=== PATIENT | female | born 1995 | race Caucasian/White ===

== ENCOUNTER → 2020-03-13 13:08 | Outpatient (CLI) | payer OTHER, SELFPAY ==
[2020-03-13 15:27] LABS: HCG,Quantitative 10756 mIU/ml (0-5.42)
[2020-03-15 10:36] LABS: Progesterone 29.9 ng/mL (.)
== END ==
PROVIDERS: Visit Provider Nurse Practitioner Obstetrics & Gynecology
DX: Z32.00 Encounter for pregnancy test, result unknown (principal)
CPT/HCPCS: 36415; 84144; 84702

== ENCOUNTER → 2020-03-28 15:56 | Outpatient (CLI) | payer OTHER, SELFPAY ==
[2020-03-28 17:02] LABS: Basophils # 0.1 K/mm3 (0-0.2); Basophils % 0.5 % (0.1-2.0); Eosinophils # 0.2 K/mm3 (0.0-0.4); Eosinophils % 2.1 % (0.1-12.0); Hematocrit 42.1 % (37.0-47.0); Hemoglobin 13.4 g/dL (12.2-16.2); Lymphocytes # 2.7 K/mm3 (0.7-4.5); Lymphocytes % 26.1 % (10-50); Mean Corpuscular HGB Conc 31.9 g/dL (31.8-35.4); Mean Corpuscular Hemoglobin 31.4 pg (27.0-31.2); Mean Corpuscular Volume 98.5 fl (81-99); Mean Platelet Volume 7.1 fl (7.4-10.4); Monocytes # 0.5 K/mm3 (0.1-1.0); Monocytes % 4.5 % (1.7-9.3); Neutrophils # 6.9 K/mm3 (1.8-7.8); Neutrophils % 66.7 % (37.0-80.0); Platelet Count 338 K/mm3 (142-424); Red Blood Count 4.28 M/mm3 (4.20-5.40); Red Cell Distribution Width 12.5 % (11.5-17.5); White Blood Count 10.4 K/mm3 (4.8-10.8)
[2020-03-30 10:04] LABS: HIV Screen 4th Generation wRfx Non Reactive (Non Reactive); Rubella Antibodies, IgG 2.99 index (Immune >0.99)
[2020-03-30 12:45] LABS: Hepatitis B Surface Antigen Negative (Negative); Hepatitis C Antibody <0.1 s/co ratio (0.0-0.9); Rapid Plasma Reagin Ab Titer Non Reactive (NonRea<1:1)
[2020-03-30 20:06] LABS: HSV 1 IgG, Type Spec <0.91 index (0.00-0.90); HSV 2 IgG Supplemental Testing Positive (Negative); HSV 2 IgG, Type Spec 4.06 index (0.00-0.90)
== END ==
PROVIDERS: Visit Provider Nurse Practitioner Obstetrics & Gynecology
DX: Z34.90 Encounter for supervision of normal pregnancy, unspecified, unspecified trimester (principal)
CPT/HCPCS: 36415; 85025; 86592; 86695; 86703; 86762; 86790; 86850; 87340; 87380; G0432

== ENCOUNTER → 2020-06-25 13:31 | Outpatient (CLI) | payer BC, OTHER, SELFPAY ==
--- NOTE | 2020-06-25 13:38 | US_ITS ---
PROCEDURE: US OB /MATERNAL DETAIL CLINICAL INDICATION: OB Complete 20 wk anatomy scan COMPARISON: No exams were available for comparison FINDINGS: There is a single live fetus present which is in breech presentation. The cervix is closed and measures approximately 4 cm. heart and body motion noted. Placenta is posterior and grade 1. Complete survey performed and was unremarkable on the submitted images as in PACS. No discrete anomalies identified on survey imaging by technologist. Active fetus. Three-vessel cord with satisfactory umbilical cord insertion. 4- chamber heart noted. Survey of brain & ventricles Unremarkable. Face and neck survey unremarkable. Diaphragm and chest views unremarkable. Abdomen: Both kidneys noted and unremarkable. Stomach noted and satisfactory. Spine: Survey of the spine satisfactory with no anomalies identified nor imaged. Both arms and legs noted. Amniotic Fluid: Adequate. Maternal adnexa: No significant findings. Measurements: Average ultrasound age 20weeks. Gestational Age 19weeks 6days Estimated due date by ultrasound age 0811/12/2020. Estimated weight 318g BPD = 19weeks 6days OFD = 21weeks 1day HC = 20weeks AC = 19weeks 6days FL = 20weeks Growth Percentile= 46Percent% Heart Rate = 135bpm Cerebellum = 20weeks 3days Humerus = 20weeks 1day HC/AC is 1.19 CI is 0.72 FL/BPD is 0.69 FL/AC is 0.22 IMPRESSION: Live IUP in breech presentation with an average ultrasound age of 20 weeks. No obvious anomalies. Please see above for detail. Dictated by: Albino Clayton MD 06/26/2020 12:27 Albino Clayton MD in [place] 06/26/2020 12:27
== END ==
PROVIDERS: PCP Nurse Practitioner Obstetrics & Gynecology; Visit Provider Nurse Practitioner Obstetrics & Gynecology
DX: Z36.0 Encounter for antenatal screening for chromosomal anomalies (principal)
CPT/HCPCS: 76811

== ENCOUNTER 2020-08-15 10:08 | Outpatient (CLI) | payer BC, OTHER, SELFPAY ==
[2020-08-15 11:06] LABS: Glucose,Fasting 84 mg/dl (74-100)
[2020-08-15 12:10] VITALS: BP 129/69; PULSE 82; RESP 16; TEMP 36.4; O2SAT 99
[2020-08-15 12:24] LABS: Glucose 1 Hour 116 mg/dL (74-100)
== END 2020-08-15 12:30 | disposition home or self-care (01) ==
PROVIDERS: PCP Nurse Practitioner Obstetrics & Gynecology; Visit Provider Nurse Practitioner Obstetrics & Gynecology
DX: Z34.90 Encounter for supervision of normal pregnancy, unspecified, unspecified trimester (principal); Z3A.23 23 weeks gestation of pregnancy
CPT/HCPCS: 36415; 82951; 96372; J2790

== ENCOUNTER 2020-08-24 21:05 | Outpatient (CLI) | payer BC, OTHER, SELFPAY ==
[2020-08-24 21:18] VITALS: BMI 25.3
[2020-08-24 21:43] LABS: Microscopic, Urine URINE MICROSCOPIC (MICROSCOPIC)
[2020-08-24 22:03] LABS: Appearance,Urine CLEAR (Clear); Bilirubin,Urine Negative (Negative); Blood, Urine Negative (Negative); Color,Urine YELLOW (Yellow); Glucose,Urine (UA) Negative (Negative); Ketones,Urine Negative (Negative); Leukocyte Esterase,Urine Negative (Negative); Nitrate,Urine Negative (Negative); PH,Urine 7.5 (5.0-8.5); Protein,Urine Negative (Negative); Urobilinogen,Urine 0.2 EU/dl (0.2)
[2020-08-24 22:07] VITALS: BP 126/85; PULSE 91; RESP 18; TEMP 36.7; O2SAT 98; BMI 25.3
[2020-08-24 22:07] LABS: RBC,Urine Occasional #/hpf (0-3); WBC,Urine Occasional #/hpf (0-3)
[2020-08-24 22:11] LABS: Barbiturates Screen,Urine Negative ng/ml (<200); Benzodiazepines Screen,Urine Negative ng/ml (<200)
[2020-08-24 22:12] LABS: Amphetamine/Metha Screen,Urine Negative ng/ml (<1000)
[2020-08-24 22:13] LABS: Cannabinoid Screen,Urine Negative ng/ml (<50); Methadone Screen,Urine Negative ng/ml (<300)
[2020-08-24 22:14] LABS: Cocaine Screen,Urine Negative ng/ml (<300)
[2020-08-24 22:15] LABS: Opiate Screen,Urine Negative ng/ml (<300); Phencyclidine Screen,Urine Negative ng/ml (<25)
[2020-08-24 22:30] LABS: Fetal Fibronectin (Rapid) Negative (Negative)
== END 2020-08-24 23:57 | disposition home or self-care (01) ==
LOC: OBOUT 21:07 → OB 21:09
PROVIDERS: PCP Nurse Practitioner Obstetrics & Gynecology; Visit Provider Obstetrics & Gynecology
DX: O47.03 False labor before 37 completed weeks of gestation, third trimester (principal); Z3A.28 28 weeks gestation of pregnancy
CPT/HCPCS: 59025; 80305; 81001; 82731; 96365; 96366; 96372; G0463

== ENCOUNTER → 2020-10-10 18:09 | Outpatient (CLI) | payer BC, OTHER, SELFPAY | PROVIDERS: Visit Provider Nurse Practitioner Obstetrics & Gynecology | DX: Z34.90 Encounter for supervision of normal pregnancy, unspecified, unspecified trimester (principal) | CPT/HCPCS: 86403 ==

== ENCOUNTER 2020-10-28 18:35 | Outpatient (CLI) | payer BC, OTHER, SELFPAY ==
[2020-10-28 19:23] VITALS: BMI 27.3
[2020-10-28 19:28] VITALS: BP 132/81; PULSE 102; RESP 18; O2SAT 95; BMI 27.3
[2020-10-28 19:37] LABS: Microscopic, Urine URINE MICROSCOPIC (MICROSCOPIC)
[2020-10-28 19:39] LABS: Appearance,Urine CLEAR (Clear); Bilirubin,Urine Negative (Negative); Blood, Urine TRACE-I (Negative); Color,Urine STRAW (Yellow); Glucose,Urine (UA) Negative (Negative); Ketones,Urine 3+ (Negative); Leukocyte Esterase,Urine Negative (Negative); Nitrate,Urine Negative (Negative); PH,Urine 6.5 (5.0-8.5); Protein,Urine Negative (Negative); Urobilinogen,Urine 0.2 EU/dl (0.2)
[2020-10-28 19:50] LABS: Benzodiazepines Screen,Urine Negative ng/ml (<200)
[2020-10-28 19:51] LABS: Amphetamine/Metha Screen,Urine Negative ng/ml (<1000)
[2020-10-28 19:52] LABS: Barbiturates Screen,Urine Negative ng/ml (<200); Cannabinoid Screen,Urine Negative ng/ml (<50)
[2020-10-28 19:53] LABS: Cocaine Screen,Urine Negative ng/ml (<300)
[2020-10-28 19:54] LABS: Methadone Screen,Urine Negative ng/ml (<300); Opiate Screen,Urine Negative ng/ml (<300)
[2020-10-28 19:55] LABS: Phencyclidine Screen,Urine Negative ng/ml (<25)
== END 2020-10-28 20:20 | disposition home or self-care (01) ==
LOC: OBOUT 18:40 → OB 18:41
PROVIDERS: PCP Nurse Practitioner Obstetrics & Gynecology; Visit Provider Obstetrics & Gynecology
DX: O60.03 Preterm labor without delivery, third trimester (principal); Z3A.37 37 weeks gestation of pregnancy; M54.5 Low back pain
CPT/HCPCS: 59025; 80305; 81001; G0463

== ENCOUNTER → 2020-11-08 14:50 | Outpatient (CLI) | payer BC, OTHER, SELFPAY ==
--- NOTE | 2020-11-08 14:51 | US_ITS ---
PROCEDURE: US OB BIOPHYSICAL PROFILE CLINICAL INDICATION: sga Small for gestational age TECHNIQUE: FINDINGS: There is a single live fetus present in cephalic presentation. heart and body motion noted. The cervix is closed measuring 3 cm. The placenta is posterior and grade 2. The following parameters are obtained: Average ultrasound age is Average 36weeks 3days Estimated due date by ultrasound is 12/03/2020. Estimated weight is 2,896g. This is 9th percentile indicating small for gestational age. BPD: 35 weeks 0 days OFD: HC: 36 weeks 6 days AC: 35 weeks 6 days FL: 37 weeks 4 days heart rate: 130bpm bpm. HC/AC: 1.02 Cephalic index: 0.73 FL/BPD: 0.85 FL/AC: 0.23 Amniotic fluid index: 12 cm Qualitative AFV: 2 breathing movements: 2 Gross body movements: 2 Tone: 2 Biophysical profile score: 8 IMPRESSION: Live IUP in cephalic presentation with an average ultrasound age of 36 weeks 6 days an estimated weight of 2896 g which is 9th percentile indicating small for gestational age. Normal amniotic fluid volume of 12 cm. Biophysical profile 8 of 8 Dictated by: Albino Clayton MD 11/08/2020 16:30 Albino Clayton MD in [place] 11/08/2020 16:30
== END ==
PROVIDERS: PCP Nurse Practitioner Obstetrics & Gynecology; Visit Provider Nurse Practitioner Obstetrics & Gynecology
DX: O36.5990 Maternal care for other known or suspected poor fetal growth, unspecified trimester, not applicable or unspecified (principal)
CPT/HCPCS: 76816; 76819

== ENCOUNTER → 2020-11-12 16:18 | Outpatient (CLI) | payer BC, OTHER, SELFPAY | PROVIDERS: Visit Provider Nurse Practitioner Obstetrics & Gynecology | DX: Z01.812 Encounter for preprocedural laboratory examination (principal); Z11.52 Encounter for screening for COVID-19; Z3A.39 39 weeks gestation of pregnancy | CPT/HCPCS: U0003 ==

== ENCOUNTER 2020-11-14 05:07 | Inpatient (IN) | payer BC, OTHER, SELFPAY ==
[2020-11-14 05:11] VITALS: BMI 28.0
[2020-11-14 05:32] VITALS: BP 136/85; PULSE 96; RESP 18; TEMP 37.1; O2SAT 97; BMI 28.0
[2020-11-14 05:37] LABS: Microscopic, Urine URINE MICROSCOPIC (MICROSCOPIC)
[2020-11-14 05:54] LABS: Bilirubin,Urine Negative (Negative); Blood, Urine TRACE-I (Negative); Color,Urine YELLOW (Yellow); Glucose,Urine (UA) Negative (Negative); Ketones,Urine Negative (Negative); Leukocyte Esterase,Urine 2+ (Negative); Nitrate,Urine Negative (Negative); PH,Urine 6.5 (5.0-8.5); Protein,Urine Negative (Negative); Urobilinogen,Urine 0.2 EU/dl (0.2)
[2020-11-14 05:57] LABS: Basophils # 0.1 K/mm3 (0-0.2); Basophils % 0.6 % (0.1-2.0); Eosinophils # 0.3 K/mm3 (0.0-0.4); Eosinophils % 3.1 % (0.1-12.0); Hemoglobin 11.8 g/dL (12.2-16.2); Lymphocytes # 2.4 K/mm3 (0.7-4.5); Mean Corpuscular HGB Conc 32.9 g/dL (31.8-35.4); Mean Corpuscular Hemoglobin 30.1 pg (27.0-31.2); Mean Corpuscular Volume 91.7 fl (81-99); Monocytes # 0.6 K/mm3 (0.1-1.0); Monocytes % 5.6 % (1.7-9.3); Neutrophils # 7.4 K/mm3 (1.8-7.8); Neutrophils % 68.7 % (37.0-80.0); Platelet Count 272 K/mm3 (142-424); Red Blood Count 3.92 M/mm3 (4.20-5.40); Red Cell Distribution Width 14.2 % (11.5-17.5); White Blood Count 10.8 K/mm3 (4.8-10.8)
[2020-11-14 06:08] LABS: Appearance,Urine Slightly Cloudy (Clear)
[2020-11-14 06:38] LABS: Bacteria,Urine 1+ /lpf; Mucus,Urine 1+ /lpf
[2020-11-14 08:58] LABS: Amphetamine/Metha Screen,Urine Negative ng/ml (<1000); Barbiturates Screen,Urine Negative ng/ml (<200)
[2020-11-14 08:59] LABS: Benzodiazepines Screen,Urine Negative ng/ml (<200)
[2020-11-14 09:00] LABS: Cannabinoid Screen,Urine Negative ng/ml (<50); Cocaine Screen,Urine Negative ng/ml (<300)
[2020-11-14 09:01] LABS: Methadone Screen,Urine Negative ng/ml (<300); Opiate Screen,Urine Negative ng/ml (<300)
[2020-11-14 09:02] LABS: Phencyclidine Screen,Urine Negative ng/ml (<25)
--- NOTE | 2020-11-14 09:46 | HMH.LABNOT ---
Labor Note - Subjective: Date: 11/14/20 Time: 09:46 regular contraction - Objective: NST:: Reactive Contractions:: every 2-3 minutes Cervical Dilation:: 4 Effacement:: 50% Station: -1 Membranes: intact - Fetus: Monitoring?: Yes monitoring type:: External - Assessment: Labor progressing?: Yes Cephalopelvic disproportion?: No Patient Problems: All Active Problems (Acute) - Plan: Anesthesia for epidural?: Yes Continue to labor down?: Yes Plan for ?: No Continue to monitor?: Yes Start pushing?: No Additional information:: She is doing well. She does not want her membranes ruptured at this point time. She is 4 cm 50% effaced. We will plan for a vaginal delivery.
--- NOTE | 2020-11-14 10:30 | HMH.OBAPHP ---
OB - H&P: HPI Antepartum - History of Present Illness Chief complaint: Postterm History of present illness: She is a 25-year-old 2 para 1 at 40 and 1 weeks gestational age. Since she is postterm we have elected to bring her in for induction of labor. - History of Present Criteria for establishing EDC:: LMP confirmed by 1st trimester US care: good care Ultrasounds: normal 1st trimester US, normal mid trimester US Obstetrical complications: none Medical complications: none - Labs Rubella: immune RPR/VDRL: nonreactive GBS status: negative HBsAG: negative [facility] History I have reviewed the patient's past medical history: Yes Medical History: Reports:: Heart Murmur *Have you ever received a pneumonia vaccine?: No *Have you received a flu vaccine this season?: No Laterality Cases: Bilateral: Tonsillectomy Other Surgeries: No: Amputation: No Fractures: No - *Social History Smoking Status: Never smoker Alcohol Intake: never Alcohol Intake Frequency:: other Substance Use Type: denies use *Occupational Status:: employed *Travel in the last 8 weeks: None Family Hx:: Diabetes, Coronary Artery Disease Para: 1 Review of Systems - Review of Systems Review of systems:: pertinent systems reviewed and negative unless documented below Meds Home Medications Medication Instructions Recorded Confirmed Type PNV 153-FA 400 mcg-om3 35 mg-dha tab PO 03/28/20 11/12/20 History 25 mg-epa 5 mg-fish oil chew tablet valacyclovir 500 mg tablet 500 mg PO DAILY #90 tab 05/22/20 11/12/20 Rx ferrous sulfate 325 mg (65 mg 325 mg PO DAILY #30 tab 06/19/20 11/12/20 Rx iron) tablet famotidine 20 mg tablet 20 mg PO DAILY #90 tab 07/20/20 11/12/20 Rx Allergies Allergy/AdvReac Type Severity Reaction Status Date / Time Penicillins Allergy Unknown Verified 11/12/20 15:26 sulfamethoxazole Allergy hives Verified 11/12/20 15:26 [From Bactrim] trimethoprim [From Bactrim] Allergy hives Verified 11/12/20 15:26 OB - H&P: Exam - Physical Exam Vital signs: Temp Pulse Resp BP Pulse Ox 98.7 F 96 H 18 136/85 97 11/14/20 05:32 11/14/20 05:32 11/14/20 05:32 11/14/20 05:32 11/14/20 05:32 - Constitutional no acute distress - Routine HEENT Exam Head: Present: normocephalic Eye: Present: EOMI, PERRL ENT: Present: mucous membranes moist - Routine Neck Exam Present: supple, full ROM - Routine Respiratory Exam Absent: accessory muscle use (good air entry bilaterally), respiratory distress, wheezes, crackles - Routine Cardiovascular Exam Present: RRR. Absent: murmur - Routine Abdominal Exam Present: soft, normoactive bowel sounds. Absent: tenderness, distended, guarding - Routine Rectal Exam Patient deferred: visual exam, digital exam - Routine Exam Patient deferred: external exam, groin exam, perineal exam - Routine Extremities Exam Present: full ROM. Absent: cyanosis, edema - Routine Skin Exam Present: intact. Absent: cyanosis - Routine Neurological Exam Present: alert, oriented X3 - Routine Psychiatric Exam Present: normal affect OB - Results - Labs Labs: Short CBC 11/14/20 Range/Units 05:25 WBC 10.8 (4.8-10.8) K/mm3 Hgb 11.8 L (12.2-16.2) g/dL Hct 36.0 L (37.0-47.0) % Plt Count 272 (142-424) K/mm3 Urine 11/14/20 Range/Units 05:25 Urine Color Yellow (Yellow) Urine Appearance Slightly cloudy (Clear) Urine pH 6.5 (5.0-8.5) Ur Specific Chaplin 1.020 (1.005-1.030) Urine Protein Negative (Negative) Urine Glucose (UA) Negative (Negative) OB - A/P Antepartum (1) Normal delivery at term Status: Acute - Additional Plan Planning to breastfeed?: Yes Plan: induction Additional Information:: She is 40 weeks and 1 day and we have started her on IV oxytocin. We expect a vaginal delivery.
--- NOTE | 2020-11-14 11:01 | HMH.ANESCL ---
[facility] Anesthesia Checklist - Patient Identification Patient Identification: Arm Band - Structural Data Admitted From: Inpatient Planned Operative Procedure/s: Labor epidural Consent for Planned Operative Procedure(s) Verified: Yes - NPO Status Verified Time NPO: 00:00 - Airway Assessment C-Spine Mobility Assessed: Yes TMJ Mobility Assessed: Yes Dentition: Good Dentition - Neurological Assessment Level of Consciousness: Awake Hx Seizures: No Numbness or tingling in extremities: No - Anesthesia Plan Anesthesia Risk discussed: Yes Anesthesia Plan: Verified ASA Class: II Anesthesia Type: Epidural [facility] History I have reviewed the patient's past medical history: Yes Medical History: Reports:: Heart Murmur *Have you ever received a pneumonia vaccine?: No *Have you received a flu vaccine this season?: No Anesthesia experience/problems:: None Laterality Cases: Bilateral: Tonsillectomy Other Surgeries: No: Amputation: No Fractures: No - *Social History Smoking Status: Never smoker Alcohol Intake: never Alcohol Intake Frequency:: other Substance Use Type: denies use *Occupational Status:: employed *Travel in the last 8 weeks: None Family Hx:: Diabetes, Coronary Artery Disease Para: 1
--- NOTE | 2020-11-14 11:12 | HMH.LABNOT ---
Labor Note - Subjective: Date: 11/14/20 Time: 11:12 regular contraction - Objective: NST:: Reactive Contractions:: every 2-3 minutes Cervical Dilation:: 5-6 Effacement:: 100% Station: 0 Membranes: spontaneously ruptured - Fetus: monitoring type:: External - Assessment: Labor progressing?: Yes Cephalopelvic disproportion?: No Patient Problems: All Active Problems Normal delivery at term (Acute) (Acute) - Plan: Anesthesia for epidural?: Yes Continue to labor down?: Yes Plan for ?: No Continue to monitor?: Yes Start pushing?: No Comment:: She is doing well. The membranes ruptured spontaneously. The cervix is thinned out and the baby's head is coming down.
--- NOTE | 2020-11-14 13:13 | HMH.DN ---
- Delivery Note Delivery Date:: 11/14/20 Delivery Time:: 12:55 Anesthesia Type: Epidural Was labor medically induced?: Yes Induction method: per pitocin protocol Gestational age (weeks): 40 delivered prior to 39 weeks?: No Gender: Female at 1 minute: 7 at 5 minutes: 9 Delivery Procedure:: She is a 25-year-old 2 para 1 at 40 weeks and 1 day gestational age. Since she was postdates we elected to induce her labor at term. She was started on IV oxytocin and under labor epidural progressed to full dilation. She delivered spontaneously a liveborn female child at 12:55 AM in the afternoon of November 14, 2020. On delivery of the head it was noted there was 2 nuchal cords that were easily reduced. This was followed by the anterior shoulder and the rest the infant's body atraumatically. The baby was vigorous and we allowed the cord to continue to pulsate for approximately 1 minute. The oropharynx and nasopharynx were bulb suction. The cord was then doubly clamped and cut and the was placed on the mother's abdomen for further care. The nurses assigned Apgars of 7 at 1 minute and 9 at 5 minutes. I then obtained cord blood as well as cord pH. Then using gentle traction on the cord and countertraction on the fundus I was able to easily deliver the placenta intact. It had a normal three-vessel cord. There were no perineal or vaginal lacerations. Estimated blood loss was approximately 200 cc. Placental Delivery Description: Spontaneous
[2020-11-14 21:20] VITALS: BP 129/81; PULSE 77; RESP 18; TEMP 36.6; O2SAT 96
[2020-11-14 23:32] VITALS: BP 120/56; PULSE 70; RESP 16; TEMP 36.6; O2SAT 97
[2020-11-15 05:07] VITALS: BP 111/57; PULSE 74; RESP 17; TEMP 36.7; O2SAT 98
[2020-11-15 07:04] LABS: Hematocrit 31.2 % (37.0-47.0); Hemoglobin 10.3 g/dL (12.2-16.2)
--- NOTE | 2020-11-15 12:36 | HMH.ACPN2 ---
Internal Medicine - PN: Subj *Date: 11/15/20 *Time: 12:36 Interval history: PPD #1 no unusual complaints tolerating regular diet ambulating and voiding without difficulty lochia appropriate Exam Vital signs and Labs for Last 24 Hours: Temp Pulse Resp BP Pulse Ox 98.0 F 74 17 111/57 L 98 11/15/20 05:07 11/15/20 05:07 11/15/20 05:07 11/15/20 05:07 11/15/20 05:07 Laboratory Results - last 24 hr 11/15/20 06:28: Screen Negative, Baby's Rh Status Positive, Rhogam Infusion Rhogam release 11/15/20 06:28: Hgb 10.3 L, Hct 31.2 L I & O for Last 24 hours: Intake & Output 11/13/20 11/14/20 11/15/20 11/16/20 11:59 11:59 11:59 11:59 Weight 158 lb Microbiology Reports for the Last 24 Hours: Microbiology 11/14/20 05:25 Urine,Clean Catch Urine Culture - Preliminary NO GROWTH AFTER 24 HOURS Narrative: CONSTITUTIONAL: no acute distress HEENT: mucous membranes moist PULMONARY: breathing unlabored without audible wheezes CV: no tachycardia or visible JVD; normal LE peripheral pulses ABD: soft, NT/ND, no guarding : fundus firm below umbilicus SKIN: no visible rash or lesions EXT: 1+ edema LEs NEURO: alert/oriented, no altered mental status PSYCH: appropriate mood and demeanor Assessment and Plan (1) Normal delivery at term Status: Acute Category: Medical Code(s): O80 - Encounter for full-term uncomplicated delivery - Assessment and plan all Dx Assessment and Plan for all problems:: Routine care Anticipate discharge home tomorrow
[2020-11-15 20:00] VITALS: BP 127/87; PULSE 80; RESP 18; TEMP 36.9; O2SAT 96
[2020-11-15 22:49] LABS: Cord Blood PH 7.37 (7.35-7.45)
[2020-11-16 04:11] VITALS: BP 117/73; PULSE 94; RESP 16; TEMP 36.7; O2SAT 97
--- NOTE | 2020-11-16 08:59 | HMH.OBDCSM ---
General - General Admission date:: 11/14/20 Discharge date: 11/16/20 HPI - History of Present Illness History of present illness: She is a 25-year-old 2 para 1 at 40+1 weeks gestational age. She was brought in for induction of labor at term. Hospital Course Hospital Course: She is a 25-year-old 2 para 1 at 41 weeks gestational age. She is brought in postdates for induction of labor. She is started on IV oxytocin had her membranes ruptured and progressed to full dilation. She delivered spontaneously a liveborn female child in the afternoon of 14 November 2020. The baby weighed 6 pounds 14 ounces and was 19 and core inches long. She had Apgars of 7 at 1 minute and 9 at 5 minutes. She has done well and has remained afebrile throughout her hospitalization. She is eating and drinking and ambulating. She is breast-feeding. Her lochia is normal. She has O Rh- blood and she has received RhoGam. She is rubella immune and was group B streptococcus negative. Her cigarette book maker is Dr. Dial. Her condition on discharge is stable and improved. Rhogam Administration: Given Objective Vital signs: Temp Pulse Resp BP Pulse Ox 98.1 F 94 H 16 117/73 97 11/16/20 04:11 11/16/20 04:11 11/16/20 04:11 11/16/20 04:11 11/16/20 04:11 no acute distress - *Routine HEENT Exam Head: Present: normocephalic Eye: Present: EOMI, PERRL ENT: Present: mucous membranes moist Results Labs on day of discharge: Labs from last 24 hours 11/14/20 13:10 Cord ABG pH 7.37 DS: Diagnosis - Discharge Diagnosis (1) Normal delivery at term Status: Acute Discharge Plan - Patient Discharge Instructions ACTIVITY: No heavy lifting DIET: continue same diet Additional Instructions: *Nothing in the Vagina for 6 weeks* *No heavy lifting* *No strenuous activity* Patient Instructions: Depression, Hemorrhage, DI for Labor and Delivery, Vaginal , DI for Pre-eclampsia, [facility] Post Discharge Instructions, Preventing the Spread of Coronavirus Discharge Instructions - Follow up Plan Follow up with: Michele Hay MD [Primary Care Provider] - Disposition: Home, Self-Care Condition at discharge:: Stable Home Medications: Home Medications Medication Instructions Recorded Confirmed Type PNV 153-FA 400 mcg-om3 35 mg-dha 1 tab PO DAILY 03/28/20 11/14/20 History 25 mg-epa 5 mg-fish oil chew tablet Famotidine [Acid Wind Turbine Service Technician] 20 mg PO DAILY 11/14/20 11/14/20 History Ferrous Sulfate 325 mg PO DAILY 11/14/20 11/14/20 History Valacyclovir HCl [Valacyclovir] 500 mg PO DAILY 11/14/20 11/14/20 History Prescriptions/Medication Reconciliation: Continued PNV 153-FA 400 mcg-om3 35 mg-dha 25 mg-epa 5 mg-fish oil chew tablet 1 tab PO DAILY Ferrous Sulfate 325 mg PO DAILY Famotidine [Acid Wind Turbine Service Technician] 20 mg PO DAILY Valacyclovir HCl [Valacyclovir] 500 mg PO DAILY - Problem Reconciliation Problems Reviewed?: Yes
== END 2020-11-16 11:45 | disposition home or self-care (01) | DRG 807 ==
PROVIDERS: Admitting Provider Obstetrics & Gynecology; PCP Nurse Practitioner Obstetrics & Gynecology; Visit Provider Nurse Practitioner Obstetrics & Gynecology
DX: O69.81X0 Labor and delivery complicated by cord around neck, without compression, not applicable or unspecified (principal); Z37.0 Single live birth; Z3A.41 41 weeks gestation of pregnancy
CPT/HCPCS: 59409; 59025; 80305; 81001; 82800; 85014; 85018; 85025; 85461; 86850; 87086; 94761; G0283; J2790

== ENCOUNTER 2023-07-03 12:37 | Outpatient (CLI) | payer BC, SELFPAY ==
[2023-07-03 14:25] LABS: HCG,Quantitative 137 mIU/ml (0-5.42)
[2023-07-04 09:14] LABS: Progesterone 14.3 ng/mL (.)
== END 2023-07-03 23:59 | disposition home or self-care (01) ==
LOC: LAB 12:41
PROVIDERS: Visit Provider Nurse Practitioner Obstetrics & Gynecology
DX: Z32.00 Encounter for pregnancy test, result unknown (principal)
CPT/HCPCS: 36415; 84144; 84702

== ENCOUNTER 2023-07-19 14:28 | Emergency (ER) | payer BC, SELFPAY ==
[2023-07-19] VITALS (8 sets, daily range): BP systolic 106–134; BP diastolic 62–90; PULSE 56–92; RESP 16; TEMP 36.7; O2SAT 97–98; BMI 22.3
--- NOTE | 2023-07-19 14:36 | US_ITS ---
PROCEDURE INFORMATION: Exam: US Pelvis, Transvaginal Exam date and time: 07/19/2023 3:14 PM Age: 28 years old Clinical indication: Other: Bleeding; Additional info: Preg vaginal bleeding LABS AND CLINICAL REPORTS: Last menstrual period start date: 05/28/2023 TECHNIQUE: Imaging protocol: Real-time transvaginal pelvic ultrasound with image documentation. Transvaginal imaging was used for better evaluation of the endometrium, adnexa, and/or cervix. COMPARISON: US OB BIOPHYSICAL PROFILE 08/11/2020 15:03 FINDINGS: Uterus: There is a small cyst-like structure measuring 2.5 mm in the endometrial canal which could represent a very early intrauterine gestational sac. The endometrium is expanded with heterogeneous mixed echogenicity debris likely representing blood clots. The endometrium measures about 1.5 cm in thickness. Right ovary/adnexa: Right ovary measures 0.99 cm x 1.13 cm x 1.93 cm. Right ovarian volume is 1.13 mL. Normal blood flow to the right ovary. Left ovary/adnexa: Left ovary measures 3.5 cm x 2.56 cm x 2.36 cm. Left ovarian volume is 11.07 mL. There is a anechoic 2 cm left ovarian cyst with a slightly hypervascular rim. Although this likely represents a corpus luteal cyst. Short-term follow-up ultrasound and correlation with serial quantitative beta HCG is recommended as ultrasound could never completely exclude the presence of an ectopic . Intraperitoneal space: No free fluid. IMPRESSION: 1. Small cyst-like structure in the endometrial canal possibly representing a very early intrauterine gestational sac measuring less than 5 weeks. No yolk sac or pole is identified at this time 2. The endometrial canal is expanded measuring up to 1.5 cm likely with blood clots 3. Anechoic 2 cm left ovarian cyst with a hypervascular rim. Please see above 4. Recommend short-term follow-up pelvic ultrasound and correlation with serial quantitative beta HCG to further evaluate the potential intrauterine gestational sac as well as the hypervascular left ovarian cystic lesion
--- NOTE | 2023-07-19 14:40 | PC.NURSE ---
RADIOLOGY NOTIFIED OF TV US ORDER
--- NOTE | 2023-07-19 14:47 | HMH.EDGENADL ---
Discharge Plan Disposition Patient Disposition: Home, Self-Care Condition: Good Chief Complaint: Vaginal Bleeding Prescriptions Prescriptions: No Action valacyclovir 500 mg tablet See Rx Instructions .ROUTE .COMPLEX Qty: 30 11RF Dose Instruction: TAKE ONE TABLET BY MOUTH ONCE DAILY Rx Instructions: TAKE ONE TABLET BY MOUTH ONCE DAILY escitalopram oxalate 10 mg tablet 20 mg PO DAILY Qty: 30 5RF Referrals Follow up/Referrals: Provider,Referral, [Primary Care Provider] - See instructions Activity Restrictions/Add. Instructions Additional Instructions/Restrictions: Your hCG is 647 today, your hemoglobin which is your oxygen-carrying cells in your blood is 14.3 which is appropriately elevated. Your blood type is O- and you were given RhoGAM in the emergency department. Please follow-up closely with OB for continued management, call them first thing tomorrow to follow-up. Return for any new or worsening symptoms. Clinical Impressions Clinical Impression: Vaginal bleeding in Instructions Patient Instructions: DI for Vaginal Bleeding During , DI for Vaginal Bleeding Discharge ED Provider: Wendy Gleason General Adult HPI <Suleiman Gardner MD - Last Filed: 07/19/23 15:38> General Chief complaint: Vaginal Bleeding Stated complaint: antpartum 7wks vaginal bleeding/cramping Time Seen by Provider: 07/19/23 14:30 History of Present Illness HPI narrative: Patient is a 28-year-old female G3, P2, previous was delivered via spontaneous vaginal delivery, EGA 7 weeks who presents emergency department for evaluation of vaginal bleeding. Over the last week patient has had spotting however over the last 24 hours has been passing clots and has intermittent crampy lower abdominal pain. Patient's blood type is O-. No definitive location has been established this . No other acute complaints at this time. Related Data Previous Rx's Medication Instructions Recorded valacyclovir 500 mg tablet See Rx Instructions .Route 12/11/22 .COMPLEX #30 tabs escitalopram oxalate 10 mg tablet 20 mg (2 x 10 mg) PO DAILY #30 tabs 03/26/23 Allergies Allergy/AdvReac Type Severity Reaction Status Date / Time Sulfa (Sulfonamide Allergy Intermediate Hives Verified 07/19/23 15:07 Antibiotics) sulfamethoxazole Allergy Intermediate hives Verified 07/19/23 15:07 [From Bactrim] trimethoprim [From Bactrim] Allergy Intermediate hives Verified 07/19/23 15:07 Penicillins Allergy Mild Rash Verified 07/19/23 15:07 PFSH <Suleiman Gardner MD - Last Filed: 07/19/23 15:38> [facility] Disclaimer: The information contained in this section may have been updated after the patient was seen, as this information can be updated by other users. Medical History (Updated 07/19/23 @ 15:38 by Suleiman Gardner MD) Depression Anxiety Heart murmur Surgical History Hx of tonsillectomy Family History (Updated 01/15/23 @ 14:41 by JEIMY Luque) Mother Hypertension Social History (Updated 01/15/23 @ 14:40 by JEIMY Luque) Smoking Status: Never smoker alcohol intake: current alcohol intake frequency: holidays/special occasions only substance use type: denies use current occupational status: employed Travel in the last 8 weeks: None <Suleiman Gardner MD - Last Filed: 07/19/23 15:38> ROS Obtained: Yes Systems reviewed as appropriate & no additional complaints except as documented Physical Exam <Suleiman Gardner MD - Last Filed: 07/19/23 15:38> General General appearance: alert and other (Tearful at bedside) Head Head exam: atraumatic and normocephalic Eye Eye exam: Present PERRL ENT ENT exam: Present mucous membranes moist Neck Neck exam: Present normal inspection Chest Chest inspection: Present normal inspection and symmetric chest wall rise Respiratory Respiratory exam: Present normal lung sounds bilaterally; Absent respiratory distress Cardiovascular Cardiovascular exam: Present normal rhythm and tachycardia Abdominal Exam Abdominal exam: Present soft; Absent tenderness Extremities Exam Extremities exam: Present normal inspection Neurological Exam Neurological exam: Present alert Psychiatric Psychiatric exam: Present normal affect Skin Skin exam: Present warm and dry Medical Decision Making <Suleiman Gardner MD - Last Filed: 07/19/23 15:38> [facility] Inquiry Pt receiving controlled substance: No Vital Signs: 07/19/23 14:30 07/19/23 15:00 07/19/23 15:43 Temperature 98.0 F Temperature Source Oral Pulse Rate 78 62 Pulse Rate [Right] 92 H Respiratory Rate 16 Blood Pressure 106/64 L 125/71 Blood Pressure [Right Arm] 134/90 Blood Pressure Mean [Right Arm] 104 Blood Pressure Source [Right Arm] Automatic Cuff 02 Sat by Pulse Oximetry 98 97 98 Oxygen Delivery Method Room Air Room Air Room Air 07/19/23 16:00 07/19/23 16:30 07/19/23 17:00 Temperature Temperature Source Pulse Rate 75 73 69 Pulse Rate [Right] Respiratory Rate Blood Pressure 119/76 115/74 112/72 Blood Pressure [Right Arm] Blood Pressure Mean [Right Arm] Blood Pressure Source [Right Arm] 02 Sat by Pulse Oximetry 97 97 97 Oxygen Delivery Method Room Air Room Air Room Air 07/19/23 17:49 Temperature 98.0 F Temperature Source Oral Pulse Rate 68 Pulse Rate [Right] Respiratory Rate 16 Blood Pressure 106/62 L Blood Pressure [Right Arm] Blood Pressure Mean [Right Arm] Blood Pressure Source [Right Arm] 02 Sat by Pulse Oximetry Oxygen Delivery Method Room Air Lab Data Lab Results 07/19/23 14:35: Urine Color Yellow, Urine Appearance Clear, Urine pH 7.0, Ur Specific [place] 1.020, Urine Protein Negative, Urine Glucose (UA) Negative, Urine Ketones Negative, Urine Blood 3+, Urine Nitrate Negative, Urine Bilirubin Negative, Urine Urobilinogen 0.2, Ur Leukocyte Esterase Negative, Urine RBC 10-20, Urine WBC None, Ur Squamous Epith Cells 3-5, Urine Bacteria Trace 07/19/23 14:43: WBC 7.7, RBC 4.42, Hgb 14.3, Hct 44.0, MCV 99.7 H, MCH 32.3 H, MCHC 32.4, RDW 13.0, Plt Count 383, MPV 7.2 L, Neut % (Auto) 46.0, Lymph % (Auto) 42.6, Gooding % (Auto) 5.3, Eos % (Auto) 5.0, Baso % (Auto) 1.1, Neut # (Auto) 3.6, Lymph # (Auto) 3.3, Gooding # (Auto) 0.4, Eos # (Auto) 0.4, Baso # (Auto) 0.1, PT 10.8, INR 1.00, Sodium 140, Potassium 3.6, Chloride 107, Carbon Dioxide 25, Anion Gap 11.6, BUN 12, Creatinine 0.70, Estimated Creat Clear 113, Estimated GFR 101, Est GFR ( Amer) 122, Glucose 99, Calcium 9.6, Total Bilirubin 0.4, AST 32, ALT 21, Alkaline Phosphatase 47, Total Protein 7.6, Albumin 4.8, Globulin 2.8, Albumin/Globulin Ratio 1.7, HCG, Quant 647 H 07/19/23 15:14: Blood Type O Negative, Antibody Screen Negative 07/19/23 14:43 07/19/23 14:43 Orders (Tests/Meds): ED MEDICATIONS Generic Name Dose Route Start Last Admin Trade Name Freq PRN Reason Stop Dose Admin Rho Immune Globulin 0 unit 07/19/23 14:56 Rho(D) Immune Globulin 1,500 Unit Syringe IM 08/18/23 14:55 NEEDED PRN For Rh Pre/ scrn resu Discontinued Medications Generic Name Dose Route Start Last Admin Trade Name Freq PRN Reason Stop Dose Admin Rho Immune Globulin 1,500 unit 07/19/23 14:49 Rho(D) Immune Globulin 1,500 Unit Syringe IM 07/19/23 14:50 ONCE ONE ORDERS Category Date Time Status Rhogam Stat BBK 07/19/23 15:14 Completed US transvaginal Stat Exams 07/19/23 14:36 Completed CBC w/Auto Diff [Complete Blood Count Auto Diff] Stat Lab 07/19/23 14:43 Completed CMP [Comprehensive Metabolic Panel] Stat Lab 07/19/23 14:43 Completed HCG,Quantitative Stat Lab 07/19/23 14:43 Completed PT INR [Prothrombin Time INR] Stat Lab 07/19/23 14:43 Completed UA [Urinalysis and Microscopic] Stat Lab 07/19/23 14:35 Completed Medical Decision Narrative: In summary patient is a 28-year-old female past medical history described above who presents emergency department for evaluation of vaginal bleeding. Patient is hemodynamically stable nontoxic-appearing upon arrival, afebrile, slight tachycardic, appropriately tearful at bedside. Differential diagnosis includes ectopic , threatened , miscarriage, among others. Workup will be conducted with hematologic labs, transvaginal ultrasound, urinalysis. Initial interventions include RhoGAM. Initial workup reviewed by me, hematologic labs are nonactionable, no RASHIDA or critical electrolyte abnormality, no acute blood loss anemia. Urinalysis interpreted by me, hematuria in the setting of vaginal bleeding, not consistent with infection. Transvaginal ultrasound and repeat evaluation pending at time of transfer of care to the oncoming physician, Dr. Gleason. <Wendy Gleason MD - Last Filed: 07/19/23 17:54> Vital Signs: 07/19/23 14:30 07/19/23 15:00 07/19/23 15:43 Temperature 98.0 F Temperature Source Oral Pulse Rate 78 62 Pulse Rate [Right] 92 H Respiratory Rate 16 Blood Pressure 106/64 L 125/71 Blood Pressure [Right Arm] 134/90 Blood Pressure Mean [Right Arm] 104 Blood Pressure Source [Right Arm] Automatic Cuff 02 Sat by Pulse Oximetry 98 97 98 Oxygen Delivery Method Room Air Room Air Room Air 07/19/23 16:00 07/19/23 16:30 07/19/23 17:00 Temperature Temperature Source Pulse Rate 75 73 69 Pulse Rate [Right] Respiratory Rate Blood Pressure 119/76 115/74 112/72 Blood Pressure [Right Arm] Blood Pressure Mean [Right Arm] Blood Pressure Source [Right Arm] 02 Sat by Pulse Oximetry 97 97 97 Oxygen Delivery Method Room Air Room Air Room Air 07/19/23 17:49 Temperature 98.0 F Temperature Source Oral Pulse Rate 68 Pulse Rate [Right] Respiratory Rate 16 Blood Pressure 106/62 L Blood Pressure [Right Arm] Blood Pressure Mean [Right Arm] Blood Pressure Source [Right Arm] 02 Sat by Pulse Oximetry Oxygen Delivery Method Room Air Lab Data Lab results reviewed: Yes I reviewed the patient's lab results. Lab Results 07/19/23 14:35: Urine Color Yellow, Urine Appearance Clear, Urine pH 7.0, Ur Specific [place] 1.020, Urine Protein Negative, Urine Glucose (UA) Negative, Urine Ketones Negative, Urine Blood 3+, Urine Nitrate Negative, Urine Bilirubin Negative, Urine Urobilinogen 0.2, Ur Leukocyte Esterase Negative, Urine RBC 10-20, Urine WBC None, Ur Squamous Epith Cells 3-5, Urine Bacteria Trace 07/19/23 14:43: WBC 7.7, RBC 4.42, Hgb 14.3, Hct 44.0, MCV 99.7 H, MCH 32.3 H, MCHC 32.4, RDW 13.0, Plt Count 383, MPV 7.2 L, Neut % (Auto) 46.0, Lymph % (Auto) 42.6, Good[place] % (Auto) 5.3, Eos % (Auto) 5.0, Baso % (Auto) 1.1, Neut # (Auto) 3.6, Lymph # (Auto) 3.3, Gooding # (Auto) 0.4, Eos # (Auto) 0.4, Baso # (Auto) 0.1, PT 10.8, INR 1.00, Sodium 140, Potassium 3.6, Chloride 107, Carbon Dioxide 25, Anion Gap 11.6, BUN 12, Creatinine 0.70, Estimated Creat Clear 113, Estimated GFR 101, Est GFR ( Amer) 122, Glucose 99, Calcium 9.6, Total Bilirubin 0.4, AST 32, ALT 21, Alkaline Phosphatase 47, Total Protein 7.6, Albumin 4.8, Globulin 2.8, Albumin/Globulin Ratio 1.7, HCG, Quant 647 H 07/19/23 15:14: Blood Type O Negative, Antibody Screen Negative Orders (Tests/Meds): ED MEDICATIONS Generic Name Dose Route Start Last Admin Trade Name Freq PRN Reason Stop Dose Admin Rho Immune Globulin 0 unit 07/19/23 14:56 Rho(D) Immune Globulin 1,500 Unit Syringe IM 08/18/23 14:55 NEEDED PRN For Rh Pre/ scrn resu Discontinued Medications Generic Name Dose Route Start Last Admin Trade Name Freq PRN Reason Stop Dose Admin Rho Immune Globulin 1,500 unit 07/19/23 14:49 Rho(D) Immune Globulin 1,500 Unit Syringe IM 07/19/23 14:50 ONCE ONE ORDERS Category Date Time Status Rhogam Stat BBK 07/19/23 15:14 Completed US transvaginal Stat Exams 07/19/23 14:36 Completed CBC w/Auto Diff [Complete Blood Count Auto Diff] Stat Lab 07/19/23 14:43 Completed CMP [Comprehensive Metabolic Panel] Stat Lab 07/19/23 14:43 Completed HCG,Quantitative Stat Lab 07/19/23 14:43 Completed PT INR [Prothrombin Time INR] Stat Lab 07/19/23 14:43 Completed UA [Urinalysis and Microscopic] Stat Lab 07/19/23 14:35 Completed Medical Decision Narrative: In summary patient is a 28-year-old female past medical history described above who presents emergency department for evaluation of vaginal bleeding. Patient is hemodynamically stable nontoxic-appearing upon arrival, afebrile, slight tachycardic, appropriately tearful at bedside. Differential diagnosis includes ectopic , threatened , miscarriage, among others. Workup will be conducted with hematologic labs, transvaginal ultrasound, urinalysis. Initial interventions include RhoGAM. Initial workup reviewed by me, hematologic labs are nonactionable, no RASHIDA or critical electrolyte abnormality, no acute blood loss anemia. Urinalysis interpreted by me, hematuria in the setting of vaginal bleeding, not consistent with infection. Transvaginal ultrasound and repeat evaluation pending at time of transfer of care to the oncoming physician, Dr. Gleason. I assumed care of patient pending transvaginal ultrasound. Patient remained hemodynamically stable and hemoglobin appropriately elevated, patient not anemic. Transvaginal ultrasound does show a structure measuring about 5 weeks gestation and hCG is 647, reportedly last week was 100. hCG is uptrending but perhaps not as much as would expect for hCG 1 week ago being 100. Patient also states that she is reportedly 7 weeks and gestation is measuring short of that. Discussed with patient that this could be indicative of early miscarriage but fetus is measuring too early to detect a heart rate. Given RhoGAM considering O- blood type and did recommend close follow-up with her OB provider for repeat hCG and ultrasound, additionally discussed strict return precautions including worsening bleeding or lightheadedness or any other concerns to which patient is agreeable. Discharged in stable condition. Critical Care <Suleiman Gardner MD - Last Filed: 07/19/23 15:38> Critical Care Time Critical Care Time: No
[2023-07-19 14:49] LABS: Microscopic, Urine URINE MICROSCOPIC (MICROSCOPIC)
--- NOTE | 2023-07-19 14:49 | PC.NURSE ---
Pt changed into gown and provided with warm blanket. Call light placed within reach.
[2023-07-19 14:51] LABS: Basophils # 0.1 K/mm3 (0-0.2); Basophils % 1.1 % (0.1-2.0); Eosinophils # 0.4 K/mm3 (0.0-0.4); Hemoglobin 14.3 g/dL (12.2-16.2); Lymphocytes # 3.3 K/mm3 (0.7-4.5); Lymphocytes % 42.6 % (10-50); Mean Corpuscular HGB Conc 32.4 g/dL (31.8-35.4); Mean Corpuscular Hemoglobin 32.3 pg (27.0-31.2); Mean Corpuscular Volume 99.7 fl (81-99); Mean Platelet Volume 7.2 fl (7.4-10.4); Monocytes # 0.4 K/mm3 (0.1-1.0); Monocytes % 5.3 % (1.7-9.3); Neutrophils # 3.6 K/mm3 (1.8-7.8); Platelet Count 383 K/mm3 (142-424); Red Blood Count 4.42 M/mm3 (4.20-5.40); White Blood Count 7.7 K/mm3 (4.8-10.8)
[2023-07-19 15:01] LABS: Appearance,Urine CLEAR (Clear); Bilirubin,Urine Negative (Negative); Blood, Urine 3+ (Negative); Color,Urine YELLOW (Yellow); Glucose,Urine (UA) Negative (Negative); Ketones,Urine Negative (Negative); Leukocyte Esterase,Urine Negative (Negative); Nitrate,Urine Negative (Negative); Protein,Urine Negative (Negative); Urobilinogen,Urine 0.2 EU/dl (0.2)
[2023-07-19 15:04] LABS: Chloride 107 mmol/L (98-107); Potassium 3.6 mmoL/L (3.5-5.1); Sodium 140 mmol/L (136-145)
[2023-07-19 15:07] LABS: Alanine Aminotransferase 21 U/L (12-78); Albumin Level 4.8 g/dl (3.5-5.0); Albumin/Globulin Ratio 1.7 (1.1-1.8); Alkaline Phosphatase 47 U/L (38-126); Anion Gap 11.6 mEq/L (5-15); Aspartate Amino Transferase 32 U/L (14-36); Bilirubin,Total 0.4 mg/dl (0.2-1.3); Blood Urea Nitrogen 12 mg/dl (7-17); Carbon Dioxide 25 mmol/L (22.0-30.0); Creatinine Clearance Estimated 113 mL/min (50-200); Estimated Glomerular Filt Rate 101 ml/min (>60); GFR (African American) 122 ML/MIN (>60); Globulin 2.8 g/dL (1.3-3.2); Total Protein,Serum 7.6 g/dl (6.3-8.2)
[2023-07-19 15:08] LABS: Calcium 9.6 mg/dl (8.4-10.2); Glucose 99 mg/dl (74-100)
[2023-07-19 15:09] LABS: Prothrombin Time 10.8 seconds (10.1-12.5)
--- NOTE | 2023-07-19 15:14 | PC.NURSE ---
Pt gone for TVUS via wheelchair
--- NOTE | 2023-07-19 15:15 | PC.NURSE ---
pt to u/s via wheelchair
[2023-07-19 15:25] LABS: HCG,Quantitative 647 mIU/ml (0-5.42)
[2023-07-19 15:29] LABS: Bacteria,Urine Trace /lpf
--- NOTE | 2023-07-19 15:42 | PC.NURSE ---
Pt returned from u/s
--- NOTE | 2023-07-19 15:43 | PC.NURSE ---
pt back from u/s
--- NOTE | 2023-07-19 16:16 | PC.NURSE ---
Rounded on pt. Pt ambulatory to bathroom at this time. No other needs voiced.
--- NOTE | 2023-07-19 17:43 | PC.NURSE ---
DR HILLS AT BEDSIDE TO UPDATE PT AND FAMILY
[2023-07-19] MEDS: RHO(D) IMMUNE GLOBULIN 1,500 UNIT SYRINGE 1500 UNIT IM (17:59)
== END 2023-07-19 18:06 | disposition home or self-care (01) ==
PROVIDERS: Emergency Medicine; Emergency Provider Emergency Medicine
DX: O20.9 Hemorrhage in early pregnancy, unspecified (principal); Z3A.01 Less than 8 weeks gestation of pregnancy
CPT/HCPCS: 36415; 76830; 80053; 81001; 84702; 85025; 85610; 96372; 99284; J2790